=== PATIENT | female | born 1980 | race Caucasian/White ===

== ENCOUNTER 2018-08-04 11:21 | Emergency (ER) | payer SELFPAY ==
[~2018-08-04] VITALS: Ht 165.1 cm; Wt 56.8 kg
[2018-08-04 11:25] VITALS: Ht 165.1 cm; Wt 56.8 kg
[2018-08-04] MEDS ORDERED: LIDOCAINE 1% (MDV) 20 ML INJ SC ONE (12:30)
--- NOTE | 2018-08-04 13:41 | ERD ---
ER Documentation Chief Complaint Chief Complaint head laceration/injury; severe nausea; memory loss HPI 37-year-old female presents the emergency department in a wheelchair with her significant other. Patient is a difficult historian with history of mostly available from the significant other. Patient was in usual state of health. Last night she apparently took some Benadryl. She was also smoking marijuana. She went to sleep apparently feeling fine. During the middle of the night she apparently got up and fell down and hit her head although she has no recollection of that event. She awoke with a laceration on the back of her scalp. She reports nausea but no headache, focal weakness, numbness, difficulty speaking. She has no recollection of the event. ROS All systems reviewed and are negative except as per history of present illness. Medications Home Meds No Active Prescriptions or Reported Meds Allergies Allergies: Coded Allergies: Sulfa (Sulfonamide Antibiotics) (Unverified Allergy, Unknown, 08/04/18) PMhx/Soc Medical and Surgical Hx: pt denies Surgical Hx History of Surgery: No Anesthesia Reaction: No Hx Neurological Disorder: No Hx Respiratory Disorders: No Hx Cardiac Disorders: No Hx Psychiatric Problems: Yes (ANXIETY) Hx Miscellaneous Medical Probl: No Hx Alcohol Use: Yes Hx Substance Use: Yes (MJ) Hx Tobacco Use: No Smoking Status: Never smoker Physical Exam Vitals Vital Signs Date Temp Pulse Resp B/P (MAP) Pulse Ox O2 O2 Flow FiO2 Time Delivery Rate 08/04/18 98.3 112 28 133/89 98 11:25 (104) Physical Exam General: Well developed, well nourished in no acute distress HEENT: 1.5 cm posterior occipital scalp laceration. No active bleeding. No deep structure involvement. No foreign body noted. No signs of skull fracture or basilar skull trauma. Face is stable and atraumatic. Neck: Full range of motion without discomfort or neurologic symptoms, no midline cervical spine tenderness, step-off, or evidence of significant trauma CV: Regular rate, rhythm, no murmurs appreciated Lungs: Clear to auscultation bilaterally with no chest wall trauma appreciated, chest wall stable with no crepitus Abdomen: Soft, atraumatic and non-tender in all 4 quadrants Extremities: Atraumatic with no bony tenderness or deformity in all 4 extremities, full range of motion throughout all joints; pelvis stable to both AP and lateral compression Back: No thoracic or lumbar midline tenderness, no step-off or evidence of significant trauma Neurologic: Awake, alert and oriented, pupils equal, round and reactive to light, face symmetric, tongue midline, moving all extremities with equal and normal strength, sensory exam grossly non-focal Result Diagram: 08/04/18 1221 08/04/18 1221 Results 24 hrs Laboratory Tests Test 08/04/18 12:15 08/04/18 12:21 Bedside Glucose 145 mg/dL White Blood Count 13.6 10^3/ul Red Blood Count 4.73 10^6/ul Hemoglobin 14.4 g/dl Hematocrit 42.7 % Mean Corpuscular Volume 90.3 fl Mean Corpuscular Hemoglobin 30.4 pg Mean Corpuscular Hemoglobin Concent 33.7 g/dl Red Cell Distribution Width 12.3 % Platelet Count 271 10^3/UL Mean Platelet Volume 10.6 fl Immature Granulocytes % 0.500 % Neutrophils % 92.0 % Lymphocytes % 3.8 % Monocytes % 2.4 % Eosinophils % 1.0 % Basophils % 0.3 % Nucleated Red Blood Cells % 0.0 /100WBC Immature Granulocytes # 0.070 10^3/ul Neutrophils # 12.5 10^3/ul Lymphocytes # 0.5 10^3/ul Monocytes # 0.3 10^3/ul Eosinophils # 0.1 10^3/ul Basophils # 0.0 10^3/ul Nucleated Red Blood Cells # 0.0 10^3/ul Prothrombin Time 12.5 Sec Prothrombin Time Ratio 1.0 INR International Normalized Ratio 0.92 Activated Partial Thromboplast Time 24.4 Sec Sodium Level 139 mmol/L Potassium Level 4.3 mmol/L Chloride Level 105 mmol/L Carbon Dioxide Level 22 mmol/L Anion Gap 12 Blood Urea Nitrogen 13 mg/dl Creatinine 0.76 mg/dl Est Glomerular Filtrat Rate mL/min > 60 mL/min Glucose Level 128 mg/dl Calcium Level 10.4 mg/dl Troponin I < 0.012 ng/ml Serum HCG, Qualitative NEGATIVE Ethyl Alcohol Level < 10.0 mg/dl Current Medications Medications Dose Sig/Laura Start Time Status Last (Trade) Ordered Route PRN Stop Time Admin Dose Reason Admin Lidocaine 20 ml ONCE ONCE 08/04/18 DC (Xylocaine SC 12:30 08/04/18 1% (Mdv) 20 12:31 ml) Procedures/MDM Patient was taken to a room, seen and evaluated. Comfort measures were initiated. Diagnostic tests were ordered and reviewed. 3 LEAD RHYTHM STRIP: Normal sinus rhythm without ectopy EK lead EKG reviewed by myself: Normal Sinus Rhythm Normal [place] and intervals No ST elevation, depression, or T wave inversion Impression: Normal EKG RADIOLOGY: Reviewed with the radiologist. REEVALUATION: 1335: Diagnostic tests were appreciated and patient was reevaluated. She remained neurologically nonfocal she began to have some insight into her presentation. Diagnostic tests were discussed with her. MEDICAL DECISION MAKIN-year-old female presents the emergency department with an altered mental status without recollection of a head trauma event. Differential diagnosis entertained and evaluated included significant head trauma, intracranial hemorrhage and other concerns. Fortunately, her CT scan shows no evidence of stroke or intracranial hemorrhage or other high-risk traumatic injury. Her lab work demonstrates no indications of other high risk because of her altered mental status which I suspect is likely related to medications and/or drugs of abuse. Overall, she appears clinically nontoxic and nonfocal and seems to be appropriate for outpatient care. Departure Diagnosis: Primary Impression: Head injury Condition: Stable Patient Instructions: HEAD INJURY with Wake-Up (Adult) Additional Instructions: Keep the wound clean. The cesar should be removed in approximately 5 days. Do not smoke marijuana or use any pills that were not prescribed to you, including Benadryl. Return for any problems or concerns. MARIANNE WHITE Aug 04, 2018 13:41
[2018-08-04 13:55] VITALS: BP 122/76; PULSE 88; RESP 17
[2018-08-04] MEDS ORDERED: ONDANSETRON 4 MG INJ IV STA (14:17)
[2018-08-04] MEDS ORDERED: ACETAMINOPHEN 500 MG TAB PO STA (14:17)
== END 2018-08-04 14:34 | disposition home or self-care (01) ==
LOC: E/R 11:21
DX: S09.90XA Unspecified injury of head, initial encounter (principal); R41.82 Altered mental status, unspecified; R55 Syncope and collapse; W01.198A Fall on same level from slipping, tripping and stumbling with subsequent striking against other object, initial encounter
CPT/HCPCS: 36415; 70450; 71045; 80048; 80307; 82962; 84484; 84703; 85025; 85610; 85730; 93005; 96374; 99285; J2405